=== PATIENT | male | born 1985 | race Caucasian/White ===

== ENCOUNTER 2018-03-16 18:56 | Emergency (ER) | payer OTHER ==
[2018-03-16 19:47] VITALS: BP 117/75
--- NOTE | 2018-03-16 21:19 | UC ---
Respiratory Complaint HPI - HPI Summary HPI Summary: dry nonproductive cough - History of Current Complaint Chief Complaint: UCRespiratory Stated Complaint: HEADACHE, BODY ACHES Time Seen by Provider: 03/16/18 20:28 Onset/Duration: Lasting Days Timing: Intermittent Episodes Severity Currently: Mild Pain Intensity: 3 Associated Signs And Symptoms: Positive: Negative - Allergies/Home Medications Allergies/Adverse Reactions: Allergies Allergy/AdvReac Type Severity Reaction Status Date / Time bee Allergy Hives Uncoded 03/16/18 19:44 Home Medications: Home Medications NK [No Home Medications Reported] 03/16/18 [History Confirmed 03/16/18] PMH/Surg Hx/FS Hx/Imm Hx Previously Healthy: Yes Respiratory History: Other - smoker - Surgical History Surgical History: None - Family History Known Family History: Positive: Hypertension - Social History Alcohol Use: None Substance Use Type: None Smoking Status (MU): Former Smoker Type: Cigars Amount Used/How Often: cigars occasionally Length of Time of Smoking/Using Tobacco: 14 Years Have You Smoked in the Last Year: No - Immunization History Most Recent Influenza Vaccination: Not the Season Most Recent Tetanus Shot: 2008 Review of Systems All Other Systems Reviewed And Are Negative: Yes Constitutional: Positive: Negative Skin: Positive: Negative Eyes: Positive: Negative ENT: Positive: Sore Throat Respiratory: Positive: Cough Cardiovascular: Positive: Negative Gastrointestinal: Positive: Negative Physical Exam Triage Information Reviewed: Yes Appearance: Well-Appearing Vital Signs: Initial Vital Signs Temp 37.2 C 03/16/18 19:44 Pulse 108 03/16/18 19:44 Resp 16 03/16/18 19:44 BP 117/75 03/16/18 19:44 Pulse Ox 100 03/16/18 19:44 Vital Signs Reviewed: Yes Eye Exam: Normal ENT Exam: Normal ENT: Positive: Normal ENT inspection Neck exam: Normal Neck: Positive: Supple Respiratory Exam: Normal Respiratory: Positive: Lungs clear Cardiovascular Exam: Normal Abdominal Exam: Normal Abdomen Description: Positive: Nontender UC Diagnostic Evaluation - Laboratory O2 Sat by Pulse Oximetry: 100 Respiratory Course/Dx - Differential Dx/Diagnosis Provider Diagnosis: Bronchitis Discharge - Sign-Out/Discharge Documenting (check all that apply): Patient Departure All imaging exams completed and their final reports reviewed: Yes - Discharge Plan Condition: Good Disposition: HOME Patient Education Materials: Acute Bronchitis (ED) Referrals: No Primary Care Phys,NOPCP [Primary Care Provider] - - Billing Disposition and Condition Condition: GOOD Disposition: Home
== END 2018-03-16 21:22 | disposition home or self-care (01) ==
LOC: UCCORT 18:56
DX: J40 Bronchitis, not specified as acute or chronic (principal); R51 Headache; Z91.030 Bee allergy status; Z87.891 Personal history of nicotine dependence
CPT/HCPCS: 87651; 99211; G0463

== ENCOUNTER 2018-12-28 16:30 | Emergency (ER) | payer OTHER ==
[2018-12-28 17:20] VITALS: BP 141/79
[2018-12-28] MEDS ORDERED: Acetaminophen TAB* 325 MG PO ONE (17:36)
[2018-12-28 17:56] LABS: Influenza A Molecular NEGATIVE (Negative); Influenza B Molecular NEGATIVE (Negative)
--- NOTE | 2018-12-28 18:03 | UC ---
FLU HPI - HPI Summary HPI Summary: Patient is a 33-year-old male presenting with nasal congestion, cough, fever, chills 2 days. Notes sore throat. Notes productive cough. Denies blood in the sputum. Denies sinus tenderness and ear pain. Denies shortness of breath and wheezing. Denies nausea and vomiting. Denies abdominal pain and diarrhea. Patient states he has taken Mucinex for relief. Patient is an every day smoker. Denies history of asthma. - History of Current Complaint Chief Complaint: UCGeneralIllness Stated Complaint: FLU LIKE SYMPTOMS Hx Obtained From: Patient Onset/Duration: Gradual Onset, Lasting Days Severity Initially: Mild Pain Intensity: 3 Pain Scale Used: 0-10 Numeric - Allergy/Home Medications Allergies/Adverse Reactions: Allergies Allergy/AdvReac Type Severity Reaction Status Date / Time bee Allergy Hives Uncoded 12/28/18 17:20 PMH/Surg Hx/FS Hx/Imm Hx Previously Healthy: Yes - Surgical History Surgical History: None - Family History Known Family History: Positive: Hypertension, Non-Contributory - Social History Alcohol Use: None Substance Use Type: None Smoking Status (MU): Current Some Day Smoker Type: Cigars Amount Used/How Often: cigars occasionally Length of Time of Smoking/Using Tobacco: 14 Years Have You Smoked in the Last Year: No - Immunization History Most Recent Influenza Vaccination: Not the 2015/2016 Season Most Recent Tetanus Shot: 2008 Review of Systems All Other Systems Reviewed And Are Negative: Yes Constitutional: Positive: Fever, Chills, Fatigue ENT: Positive: Sore Throat, Nasal Discharge, Sinus Congestion. Negative: Ear Ache, Sinus Pain/Tenderness Respiratory: Positive: Cough. Negative: Shortness Of Breath Cardiovascular: Positive: Negative. Negative: Chest Pain Gastrointestinal: Positive: Negative. Negative: Abdominal Pain, Vomiting, Diarrhea, Nausea Musculoskeletal: Positive: Myalgia Neurological: Positive: Negative Physical Exam Triage Information Reviewed: Yes Appearance: No Pain Distress, Well-Nourished, Ill-Appearing Vital Signs: Initial Vital Signs Temp 100.4 F 12/28/18 17:18 Pulse 120 12/28/18 17:18 Resp 18 12/28/18 17:18 BP 141/79 12/28/18 17:18 Pulse Ox 97 12/28/18 17:18 Lab Results 12/28/18 12/28/18 Range/Units 17:40 17:45 Influenza A (Rapid) Negative (Negative) Influenza B (Rapid) Negative (Negative) Group A Strep Rapid Negative (Negative) Vital Signs Reviewed: Yes Eyes: Positive: Conjunctiva Clear ENT: Positive: Hearing grossly normal, Pharyngeal erythema, Nasal congestion, Nasal drainage, TMs normal, Tonsillar swelling, Uvula midline, Other - Moist oromucosa. Negative: Tonsillar exudate, Hoarse voice, Sinus tenderness Neck: Positive: Supple, Nontender, Enlarged Nodes @ - right anterior cervical node Respiratory Exam: Normal Respiratory: Positive: Lungs clear, Normal breath sounds, No respiratory distress. Negative: Crackles, Rhonchi, Stridor, Wheezing Cardiovascular Exam: Other - Regular rhythm Cardiovascular: Positive: Tachycardia Neurological: Positive: Alert Psychological: Positive: Age Appropriate Behavior Flu Course/Dx - Course Course Of Treatment: Discussed negative strep test and flu tests with patient and educated him on likely viral etiology of his symptoms. Patient given Tylenol here for low-grade fever. Instructed him to continue with symptomatic treatment and follow up with PCP if symptoms persist. Instructed him to go to ED if symptoms worsen. Patient voiced understanding and agreed with the treatment plan. - Differential Dx/Diagnosis Provider Diagnosis: Flu-like symptoms Discharge ED - Sign-Out/Discharge Documenting (check all that apply): Patient Departure All imaging exams completed and their final reports reviewed: No Studies - Discharge Plan Condition: Stable Disposition: HOME Patient Education Materials: Viral Syndrome (ED) Forms: *Work Release Referrals: [facility] [Outside] - If Needed [facility] [place] [facility] REFERRAL [Outside] - If Needed Additional Instructions: As discussed, you tested negative for strep throat and the flu today. You may continue with ibuprofen and tylenol for pain and fever relief. Make sure you get plenty of rest and drink plenty of fluids. Follow-up with your PCP or one of the referrals listed below if symptoms persist. Go to the emergency room if you experience worsening symptoms including fever higher than 102, nausea and vomiting, or difficulty breathing. - Billing Disposition and Condition Condition: STABLE Disposition: Home
== END 2018-12-28 18:20 | disposition home or self-care (01) ==
LOC: UCCORT 16:30
DX: R05 Cough (principal); R09.81 Nasal congestion; R50.9 Fever, unspecified; R53.83 Other fatigue; J02.9 Acute pharyngitis, unspecified; M79.10 Myalgia, unspecified site; R00.0 Tachycardia, unspecified; F17.210 Nicotine dependence, cigarettes, uncomplicated; Z91.030 Bee allergy status
CPT/HCPCS: 87651; 99212; A9270-GY; G0463

== ENCOUNTER 2019-05-28 16:14 | Emergency (ER) | payer OTHER ==
[2019-05-28 16:53] VITALS: BP 113/66
--- NOTE | 2019-05-28 17:25 | UC ---
Complaint Male HPI - HPI Summary HPI Summary: C/O painful lump in the right groin since yesterday, getting worse. No chills or fevers. Also c/o right great toe swelling and pain x 3-4 days from ingrown toenail. - History of Current Complaint Chief Complaint: UCGeneralIllness Stated Complaint: PERSONAL Time Seen by Provider: 05/28/19 17:14 Hx Obtained From: Patient Onset/Duration: Sudden Onset, Lasting Days - toes x 4 days, right groin since yesterday. Timing: Constant Severity Initially: Mild Severity Currently: Moderate Pain Intensity: 5 Character: Sharp Aggravating Factor(s): Other - bending over for the groin. Walking on the toe Alleviating Factor(s): Other - sitting lying backwards. Associated Signs And Symptoms: Negative: Diaphoresis, Back Pain, Fever, Dysuria , Constipation, Blood in Stool, Rectal Pain, Nausea, Vomiting(# Of Episodes =), Penile Swelling, Penile Discharge - Allergies/Home Medications Allergies/Adverse Reactions: Allergies Allergy/AdvReac Type Severity Reaction Status Date / Time bee Allergy Hives Uncoded 05/28/19 16:48 Home Medications: Home Medications Acetaminophen [Tylenol Extra Strength] 500 mg PO Q6H PRN 05/28/19 [History Confirmed 05/28/19] DOXYcycline CAP(*) [DOXYcycline 100MG CAP(*)] 100 mg PO BID #20 cap 05/28/19 [Rx ] PMH/Surg Hx/FS Hx/Imm Hx Previously Healthy: Yes - Surgical History Surgical History: None - Family History Known Family History: Positive: Hypertension, Non-Contributory Negative: Cardiac Disease, Diabetes - Social History Occupation: Employed Full-time Lives: With Family Alcohol Use: None Substance Use Type: None Smoking Status (MU): Current Some Day Smoker Type: Cigars Amount Used/How Often: 2-3 cigars/daily Length of Time of Smoking/Using Tobacco: 14 Years Have You Smoked in the Last Year: No - Immunization History Most Recent Influenza Vaccination: Not the 2016/2017 Season Most Recent Tetanus Shot: 2008 Review of Systems All Other Systems Reviewed And Are Negative: Yes Skin: Positive: Other - swelling right great toe around nail with redness. Genitourinary: Positive: Other - tender lump in the right groin Is Patient Immunocompromised?: No Physical Exam Triage Information Reviewed: Yes Appearance: Well-Appearing, No Pain Distress, Well-Nourished Vital Signs: Initial Vital Signs Temp 100.2 F 05/28/19 16:49 Pulse 107 05/28/19 16:49 Resp 16 05/28/19 16:49 BP 113/66 05/28/19 16:49 Pulse Ox 100 05/28/19 16:49 Vital Signs Reviewed: Yes Eyes: Positive: Conjunctiva Clear ENT: Positive: Pharynx normal, TMs normal Neck exam: Normal Respiratory: Positive: Lungs clear Cardiovascular: Positive: RRR, No Murmur Male Genital Exam: Positive: Normal Genitalia, No Hernia, Inguinal Tenderness - with 1 cm lymph node in the right inguinal region. Negative: Epididymal Tenderness Musculoskeletal Exam: Normal Neurological Exam: Normal Psychological Exam: Normal Skin: Positive: Other - swelling, redness around the ingrowing toenail, right great toe Complaint Male Course/Dx - Differential Dx/Diagnosis Differential Diagnosis/HQI/PQRI: Epididymitis, Incarcerated Hernia, Testicular Torsion Provider Diagnosis: Paronychia of great toe, right, Localized enlarged lymph nodes Discharge ED - Sign-Out/Discharge Documenting (check all that apply): Patient Departure All imaging exams completed and their final reports reviewed: No Studies - Discharge Plan Condition: Stable Disposition: HOME Prescriptions: DOXYcycline CAP(*) [DOXYcycline 100MG CAP(*)] 100 mg PO BID #20 cap Patient Education Materials: Paronychia (ED), Lymphadenopathy (ED) Referrals: No Primary Care Phys,NOPCP [Primary Care Provider] - - Billing Disposition and Condition Condition: STABLE Disposition: Home
== END 2019-05-28 17:45 | disposition home or self-care (01) ==
LOC: UCCORT 16:14
DX: L03.031 Cellulitis of right toe (principal); R59.0 Localized enlarged lymph nodes; Z91.030 Bee allergy status; Z72.0 Tobacco use
CPT/HCPCS: 99212; G0463